=== PATIENT | female | born 1980 | race Caucasian/White ===

== ENCOUNTER → 2020-03-09 | Outpatient (CLI) | payer OTHER ==
--- NOTE | 2020-03-09 14:19 | RAD ---
EXAM: Pelvic sonogram. HISTORY: Pelvic pain. TECHNIQUE: Transabdominal sonographic imaging of the pelvis was performed. COMPARISON: 12/08/2009. FINDINGS: The uterus measures 7.5 x 5.1 x 3.2 cm. The endometrial stripe measures 2 mm in thickness. The ovaries are normal in size and demonstrate normal blood flow. There is a 1.8 cm cystic lesion within the vagina. There is no pelvic free fluid. IMPRESSION: 1. 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 2. Otherwise, unremarkable pelvic sonogram. Electronically signed by: Sylvia Rai MD (03/09/2020 2:16 PM) [id number]
== END ==
LOC: US 13:05
PROVIDERS: ATTEND Physician Assistant Medical
DX: N89.8 Other specified noninflammatory disorders of vagina (principal)
CPT/HCPCS: 76856